=== PATIENT | male | born 1970 | race Caucasian/White ===

== ENCOUNTER 2018-11-04 06:56 | Observation (INO) | payer OTHER ==
--- NOTE | 2018-11-04 07:41 | ED ---
General Adult HPI - General Chief complaint: Chest Pain Stated complaint: Chest Pain Time Seen by Provider: 11/04/18 07:05 Source: patient, RN notes reviewed, old records reviewed Mode of arrival: EMS Limitations: no limitations - History of Present Illness Initial comments: 48-year-old male presenting for evaluation of chest pain. Patient's symptoms began at 4:30 this morning, he presents for evaluation at 7 AM. Patient has no known history of CAD, no history of DVT or PE. Patient has previous tobacco use but has not smoked in the past 18 years. He has been diagnosed with diabetes and hypertension although he is not currently on treatment because he does not have a primary care physician. Chest pain was central chest, radiating to the left arm. Pain is improved at the time of my evaluation. He is given fentanyl and nitroglycerin by EMS. Patient does report some diaphoresis. No nausea vomiting. - Related Data Home Medications Medication Instructions Recorded Confirmed Aspirin [Adult Low Dose Aspirin EC] 81 mg PO DIRECTED 11/30/16 11/04/18 Atorvastatin [Lipitor] 80 mg PO DIRECTED 11/30/16 11/04/18 Garlic 1 tab PO DAILY 11/30/16 11/04/18 Niacin [Niacin ER] 750 mg PO DAILY 11/30/16 11/04/18 [place]-3 Fatty Acids/Fish Oil [Fish 1 tab PO DAILY 11/30/16 11/04/18 Oil 1,000 mg Softgel] metFORMIN HCL [Glucophage] 500 mg PO DIRECTED 11/30/16 11/04/18 Fenofibrate,Micronized 134 mg PO DIRECTED 11/04/18 11/04/18 [Fenofibrate] Allergies Allergy/AdvReac Type Severity Reaction Status Date / Time Penicillins Allergy Swelling Verified 11/04/18 07:50 Review of Systems ROS Statement: Those systems with pertinent positive or pertinent negative responses have been documented in the HPI. ROS Other: All systems not noted in ROS Statement are negative. Past Medical History Past Medical History: Diabetes Mellitus, Hyperlipidemia, Hypertension, Liver Disease, Sleep Apnea/CPAP/BIPAP Additional Past Medical History / Comment(s): Vitamin D deficiency, "fatty liver " History of Any Multi-Drug Resistant Organisms: None Reported Past Surgical History: No Surgical Hx Reported Past Anesthesia/Blood Transfusion Reactions: No Reported Reaction Past Psychological History: No Psychological Hx Reported Smoking Status: Former smoker Past Alcohol Use History: None Reported Past Drug Use History: None Reported General Exam Limitations: no limitations General appearance: alert, in no apparent distress Head exam: Present: atraumatic, normocephalic Eye exam: Present: normal appearance, PERRL ENT exam: Present: normal exam Neck exam: Present: normal inspection. Absent: tenderness, meningismus Respiratory exam: Present: normal lung sounds bilaterally. Absent: respiratory distress, wheezes Cardiovascular Exam: Present: regular rate, normal rhythm GI/Abdominal exam: Present: soft. Absent: distended, tenderness, guarding Extremities exam: Present: normal inspection, normal capillary refill, other ( Distal pulses 2+, symmetric). Absent: pedal edema Neurological exam: Present: alert, oriented X3, CN II-XII intact. Absent: motor sensory deficit Psychiatric exam: Present: normal affect, normal mood Skin exam: Present: warm, dry, intact. Absent: cyanosis, diaphoretic Course Vital Signs 11/04/18 11/04/18 11/04/18 06:58 07:04 09:27 Temperature 98.5 F Pulse Rate 104 H 90 Respiratory 18 19 Rate Blood Pressure 121/78 111/78 O2 Sat by Pulse 97 95 Oximetry EKG Findings - EKG Comments: EKG Findings:: EKG: Sinus tachycardia, rate of 103, Q waves and T-wave inversion in lead 3 and aVF, rate of 103, CO interval 152, QRS duration 88, QTC 463, no ST segment elevation or depression Medical Decision Making - Medical Decision Making 48-year-old male presenting for evaluation of chest pain. EKG shows some Q waves and T-wave inversion in inferior leads. No ST segment elevation. Chest x -ray negative for acute cardiopulmonary disease. Patient is asymptomatic on emergency department. Symptoms have both typical and atypical features. Vital signs remained stable, he is resting comfortably. He has a normal CBC, normal CMP, initial troponin is negative. Patient has not had primary care follow-up and has not been compliant with his medications for the past one year. They will place patient in observation for telemetry, serial cardiac enzymes, cardiology consultation. Case discussed with , will admit. - Lab Data Result diagrams: 11/04/18 07:20 11/04/18 07:20 Lab Results 11/04/18 11/04/18 11/04/18 Range/Units 07:20 07:20 07:20 WBC 7.9 (3.8-10.6) k/uL RBC 5.81 (4.30-5.90) m/uL Hgb 16.5 (13.0-17.5) gm/dL Hct 48.9 (39.0-53.0) % MCV 84.1 (80.0-100.0) fL MCH 28.4 (25.0-35.0) pg MCHC 33.8 (31.0-37.0) g/dL RDW 14.0 (11.5-15.5) % Plt Count 177 (150-450) k/uL Neutrophils % 63 % Lymphocytes % 27 % Monocytes % 6 % Eosinophils % 2 % Basophils % 1 % Neutrophils # 5.0 (1.3-7.7) k/uL Lymphocytes # 2.2 (1.0-4.8) k/uL Monocytes # 0.5 (0-1.0) k/uL Eosinophils # 0.1 (0-0.7) k/uL Basophils # 0.0 (0-0.2) k/uL PT (9.0-12.0) sec INR (<1.2) APTT (22.0-30.0) sec Sodium 137 (137-145) mmol/L Potassium 4.6 (3.5-5.1) mmol/L Chloride 103 (98-107) mmol/L Carbon Dioxide 24 (22-30) mmol/L Anion Gap 10 mmol/L BUN 14 (9-20) mg/dL Creatinine 0.61 L (0.66-1.25) mg/dL Est GFR (CKD-EPI)AfAm >90 (>60 ml/min/1.73 sqM) Est GFR (CKD-EPI)NonAf >90 (>60 ml/min/1.73 sqM) Glucose 371 H (74-99) mg/dL Calcium 8.9 (8.4-10.2) mg/dL Magnesium 1.6 (1.6-2.3) mg/dL Total Bilirubin 1.2 (0.2-1.3) mg/dL AST 41 (17-59) U/L ALT 66 (21-72) U/L Alkaline Phosphatase 140 H (38-126) U/L Total Creatine Kinase 54 L (55-170) U/L CK-MB (CK-2) <0.2 (0.0-2.4) ng/mL CK-MB (CK-2) Rel Index Troponin I <0.012 (0.000-0.034) ng/mL Total Protein 7.1 (6.3-8.2) g/dL Albumin 4.2 (3.5-5.0) g/dL 11/04/18 Range/Units 07:20 WBC (3.8-10.6) k/uL RBC (4.30-5.90) m/uL Hgb (13.0-17.5) gm/dL Hct (39.0-53.0) % MCV (80.0-100.0) fL MCH (25.0-35.0) pg MCHC (31.0-37.0) g/dL RDW (11.5-15.5) % Plt Count (150-450) k/uL Neutrophils % % Lymphocytes % % Monocytes % % Eosinophils % % Basophils % % Neutrophils # (1.3-7.7) k/uL Lymphocytes # (1.0-4.8) k/uL Monocytes # (0-1.0) k/uL Eosinophils # (0-0.7) k/uL Basophils # (0-0.2) k/uL PT 10.0 (9.0-12.0) sec INR 0.9 (<1.2) APTT 21.3 L (22.0-30.0) sec Sodium (137-145) mmol/L Potassium (3.5-5.1) mmol/L Chloride (98-107) mmol/L Carbon Dioxide (22-30) mmol/L Anion Gap mmol/L BUN (9-20) mg/dL Creatinine (0.66-1.25) mg/dL Est GFR (CKD-EPI)AfAm (>60 ml/min/1.73 sqM) Est GFR (CKD-EPI)NonAf (>60 ml/min/1.73 sqM) Glucose (74-99) mg/dL Calcium (8.4-10.2) mg/dL Magnesium (1.6-2.3) mg/dL Total Bilirubin (0.2-1.3) mg/dL AST (17-59) U/L ALT (21-72) U/L Alkaline Phosphatase (38-126) U/L Total Creatine Kinase (55-170) U/L CK-MB (CK-2) (0.0-2.4) ng/mL CK-MB (CK-2) Rel Index Troponin I (0.000-0.034) ng/mL Total Protein (6.3-8.2) g/dL Albumin (3.5-5.0) g/dL Disposition Clinical Impression: Chest pain Disposition: ADMITTED IP TO THIS [facility] Condition: Stable Is patient prescribed a controlled substance at d/c from ED?: No Referrals: Ming Gaitan DO [Primary Care Provider] - 1-2 days Decision to Admit Reason: Admit from EC Decision Date: 11/04/18 Decision Time: 09:37
--- NOTE | 2018-11-04 07:55 | XR ---
EXAMINATION TYPE: XR chest 2V DATE OF EXAM: 11/04/2018 COMPARISON: NONE HISTORY: Chest pain TECHNIQUE: Frontal and lateral views of the chest are obtained. FINDINGS: Patient is rotated. There are cardiac leads. There is no focal air space opacity, pleural e ffusion, or pneumothorax seen. The cardiac silhouette size is within normal limits. The osseous st ructures are intact. IMPRESSION: No acute cardiopulmonary process. Follow-up as indicated. Rotated exam.
[2018-11-04 07:56] LABS: Basophils % (A) 1 %; Eosinophils # (A) 0.1 k/uL (0-0.7); Eosinophils % (A) 2 %; HCT 48.9 % (39.0-53.0); HGB 16.5 gm/dL (13.0-17.5); Lymphocytes # (A) 2.2 k/uL (1.0-4.8); Lymphocytes % (A) 27 %; MCH 28.4 pg (25.0-35.0); MCHC 33.8 g/dL (31.0-37.0); MCV 84.1 fL (80.0-100.0); Mean Platelet Volume 8.8; Monocytes # (A) 0.5 k/uL (0-1.0); Monocytes % (A) 6 %; Neutrophils % (A) 63 %; Platelet Count 177 k/uL (150-450); RBC 5.81 m/uL (4.30-5.90); WBC 7.9 k/uL (3.8-10.6)
[2018-11-04 08:04] LABS: ALT 66 U/L (21-72); AST 41 U/L (17-59); Albumin 4.2 g/dL (3.5-5.0); Alkaline Phosphatase 140 U/L (38-126); Anion Gap 10 mmol/L; Blood Urea Nitrogen 14 mg/dL (9-20); Calcium 8.9 mg/dL (8.4-10.2); Carbon Dioxide 24 mmol/L (22-30); Chloride 103 mmol/L (98-107); Glucose 371 mg/dL (74-99); Magnesium 1.6 mg/dL (1.6-2.3); Sodium 137 mmol/L (137-145); Total Bilirubin 1.2 mg/dL (0.2-1.3); Total Protein 7.1 g/dL (6.3-8.2)
[2018-11-04 08:05] LABS: Potassium 4.6 mmol/L (3.5-5.1)
[2018-11-04 08:11] LABS: INR 0.9 (<1.2)
[2018-11-04 08:24] LABS: Partial Thromboplastin Time 21.3 sec (22.0-30.0)
[2018-11-04 08:29] LABS: Creatine Kinase 54 U/L (55-170)
[2018-11-04 08:42] LABS: Creatine Kinase MB <0.2 ng/mL (0.0-2.4); Troponin I <0.012 ng/mL (0.000-0.034)
[2018-11-04] MEDS ORDERED: ASPIRIN 325 MG TAB PO STA (09:30)
[2018-11-04] MEDS ORDERED: NALOXONE 0.4 MG/ML 1 ML VIAL IV PRN (09:33)
[2018-11-04] MEDS ORDERED: ACETAMINOPHEN TAB 325 MG TAB PO PRN (09:33)
[2018-11-04] MEDS ORDERED: MORPHINE SULFATE 4 MG/ML SYRINGE IV PRN (09:33)
[2018-11-04] MEDS ORDERED: ONDANSETRON 4 MG/2 ML VIAL IVP PRN (09:33)
[2018-11-04] MEDS ORDERED: ATORVASTATIN 80 MG TAB PO SCH (09:45)
[2018-11-04] MEDS ORDERED: NON-FORMULARY DRUG (Aspirin [Adult Low Dose Aspirin Ec] 81 MG) PO SCH (09:45)
[2018-11-04 11:44] LABS: Glucose,Whole Blood 276 mg/dL (75-99)
[2018-11-04] MEDS ORDERED: FENOFIBRATE MICRONIZED 134 MG PO SCH (12:00)
[2018-11-04] MEDS ORDERED: ALPRAZolam 0.25 MG TAB PO PRN (12:27)
[2018-11-04] MEDS ORDERED: ALPRAZolam 0.5 MG TAB PO PRN (12:27)
[2018-11-04] MEDS ORDERED: SODIUM CHLORIDE 0.9% 1,000 ML in EMPTY BAG 1 BAG IV ONE (12:27)
[2018-11-04] MEDS ORDERED: NITROGLYCERIN SL TABS 0.4 MG TAB SUBLINGUAL PRN (12:27)
[2018-11-04] MEDS ORDERED: HEPARIN SODIUM,PORCINE 5,000 UNIT/ML 1 ML VIAL IV PRN (12:28)
[2018-11-04] MEDS ORDERED: HEPARIN SODIUM,PORCINE 5,000 UNIT/ML 1 ML VIAL IV ONE (12:28)
[2018-11-04] MEDS ORDERED: HEPARIN SOD,PORK IN 0.45% NACL 25,000 UNIT in 0.45% NACL 1 250ML.BAG IV SCH (12:30)
--- NOTE | 2018-11-04 13:09 | P.CRDCN ---
History of Present Illness History of present illness: This is a pleasant 48-year-old male past medical history significant for diabetes mellitus, hypertension in the past although not on medication currently, dyslipidemia, former nicotine dependence and morbid obesity. He denies history of coronary artery disease. He states his father suffered his first myocardial infarction in his mid to late 40s. We have been asked to see him in consultation for symptoms chest discomfort. He states he woke up this morning with a squeezing pressure sensation in the midsternal region with radiation to the left shoulder and left neck. He denies radiation down the left arm, into the back or jaw. He denies associated shortness of breath, dizziness, palpitations, nausea, vomiting or diaphoresis. The pain has been constant since he woke up this morning and is mildly reproducible on palpation in the midsternal region. EKG reveals sinus mechanism with T-wave inversions inferiorly and inferior Q waves noted. Chest x-ray is negative for an acute cardiopulmonary process. Laboratory data reviewed, WBC 7.9, hemoglobin 16.5, platelets 177, sodium 137, potassium 4.6, creatinine 0.61, magnesium 1.6, alkaline phosphatase 140, cardiac enzymes negative 1. Current cardiac medications include atorvastatin 80 mg daily, fenofibrate 134 mg daily, niacin 750 mg daily and aspirin 81 mg daily. At the time of my exam: CONSTITUTIONAL: Denies fever. Denies chills. EYES: Denies blurred vision. Denies vision changes. Denies eye pain. EARS, NOSE, MOUTH & THROAT: Denies headache. Denies sore throat. Denies ear pain. CARDIOVASCULAR: Complains of chest pain. Denies shortness of breath. Denies orthopnea. Denies PND. Denies palpitations. RESPIRATORY: Denies cough. GASTROINTESTINAL: Denies abdominal pain. Denies diarrhea. Denies constipation. Denies nausea. Denies vomiting. MUSCULOSKELETAL: Denies myalgias. INTEGUMENTARY: Denies pruitis. Denies rash. NEUROLOGIC: Denies numbness. Denies tingling. Denies weakness. PSYCHIATRIC: Denies anxiety. Denies depression. ENDOCRINE: Denies fatigue. Denies weight change. Denies polydipsia. Denies polyurina. GENITOURINARY: Denies burning, hematuria or urgency with micturation. HEMATOLOGIC: Denies history of anemia. Denies bleeding. Blood pressure 150/98 heart rate 94 afebrile maintaining oxygen saturation on nasal cannula GENERAL: This is a 48-year-old occasion male in no apparent distress at the time of my examination. Obese. HEENT: Head is atraumatic, normocephalic. Pupils are equal, round. Sclerae anicteric. Conjunctivae are clear. Mucous membranes of the mouth are moist. Neck is supple. There is no jugular venous distention. No carotid bruit is heard. LUNGS: Clear to auscultation no wheezes, rales or rhonchi. Mild chest wall tenderness is noted on palpation. No chest discomfort with deep breathing. HEART: Regular rate and rhythm without murmurs, rubs or gallops. S1 and S2 heard. ABDOMEN: Soft, nontender. Bowel sounds are heard. No organomegaly noted. EXTREMITIES: No evidence of peripheral edema and no calf tenderness noted. VASCULAR: Radial and dorsalis pedis pulses palpated, no evidence of clubbing. NEUROLOGIC: Patient is awake, alert and oriented x3. ASSESSMENT Unstable angina Dyslipidemia Diabetes mellitus Hypertension Significant family history of premature coronary artery disease Morbid obesity, BMI 44 Former nicotine dependence PLAN Continue to obtain serial cardiac enzymes to rule out an acute coronary event. Obtain 2-D echocardiogram and Doppler study to assess cardiac structure and function. Recommend proceeding with cardiac catheterization to further assess for coronary artery disease given the patient's symptoms of unstable angina and significant risk factors. I have discussed the risks, benefits and alternative therapies for the above-mentioned procedure and for both sedation/analgesia as well as necessary blood product administration, if indicated, as they pertain to this patient. The patient has indicated understanding and acceptance of the risks and procedures discussed. Questions have been answered appropriately and he is agreeable to move forward with the above stated procedure. Nothing by mouth after midnight. He will be initiated on a heparin infusion, Nitropaste and beta blockers. Continue aspirin and atorvastatin as previously ordered. Check lipid panel in the morning. Further recommendations to follow based upon clinical course. Thank you kindly for this consultation. Nurse Practitioner note has been reviewed, I agree with a documented findings and plan of care. Patient was seen and examined. Past Medical History Past Medical History: Diabetes Mellitus, Hyperlipidemia, Hypertension, Liver Disease, Sleep Apnea/CPAP/BIPAP Additional Past Medical History / Comment(s): NIDDM type II, neuropathy bilateral hands/legs and feet, [place] with CPap, vitamin D defiency, "fatty liver" History of Any Multi-Drug Resistant Organisms: None Reported Past Surgical History: No Surgical Hx Reported Past Anesthesia/Blood Transfusion Reactions: No Reported Reaction Smoking Status: Former smoker - Past Family History Mother Family Medical History: Diabetes Mellitus, Renal Disease Additional Family Medical History / Comment(s): Irregular heart beat, stage II renal failure, diabetic neuropathy. Father Family Medical History: Coronary Artery Disease (CAD), Myocardial [place]arction [place] ) Additional Family Medical History / Comment(s): Father had a [place] in his early 40s. He while on the heart transplant list at the age of 52 yrs Medications and Allergies Home Medications Medication Instructions Recorded Confirmed Type Aspirin [Adult Low Dose Aspirin EC] 81 mg PO DIRECTED 11/30/16 11/04/18 History Atorvastatin [Lipitor] 80 mg PO DIRECTED 11/30/16 11/04/18 History Garlic 1 tab PO DAILY 11/30/16 11/04/18 History Niacin [Niacin ER] 750 mg PO DAILY 11/30/16 11/04/18 History [place]-3 Fatty Acids/Fish Oil [Fish 1 tab PO DAILY 11/30/16 11/04/18 History Oil 1,000 mg Softgel] metFORMIN HCL [Glucophage] 500 mg PO DIRECTED 11/30/16 11/04/18 History Fenofibrate,Micronized 134 mg PO DIRECTED 11/04/18 11/04/18 History [Fenofibrate] Allergies Allergy/AdvReac Type Severity Reaction Status Date / Time Penicillins Allergy Swelling Verified 11/04/18 07:50 Physical Exam Vitals: Vital Signs Temp Pulse Pulse Resp BP BP Pulse Ox 11/04/18 11:15 98.1 F 94 18 150/98 96 11/04/18 09:27 90 19 111/78 95 11/04/18 07:04 104 H 18 121/78 97 11/04/18 06:58 98.5 F Intake and Output 11/03/18 11/04/18 11/04/18 22:59 06:59 14:59 Other: Weight 124.738 kg Results 11/04/18 07:20 11/04/18 07:20 Cardiac Enzymes 11/04/18 11/04/18 Range/Units 07:20 07:20 AST 41 (17-59) U/L CK-MB (CK-2) <0.2 (0.0-2.4) ng/mL Troponin I <0.012 (0.000-0.034) ng/mL Coagulation 11/04/18 Range/Units 07:20 PT 10.0 (9.0-12.0) sec APTT 21.3 L (22.0-30.0) sec CBC 11/04/18 Range/Units 07:20 WBC 7.9 (3.8-10.6) k/uL RBC 5.81 (4.30-5.90) m/uL Hgb 16.5 (13.0-17.5) gm/dL Hct 48.9 (39.0-53.0) % Plt Count 177 (150-450) k/uL Comprehensive Metabolic Panel 11/04/18 Range/Units 07:20 Sodium 137 (137-145) mmol/L Potassium 4.6 (3.5-5.1) mmol/L Chloride 103 (98-107) mmol/L Carbon Dioxide 24 (22-30) mmol/L BUN 14 (9-20) mg/dL Creatinine 0.61 L (0.66-1.25) mg/dL Glucose 371 H (74-99) mg/dL Calcium 8.9 (8.4-10.2) mg/dL AST 41 (17-59) U/L ALT 66 (21-72) U/L Alkaline Phosphatase 140 H (38-126) U/L Total Protein 7.1 (6.3-8.2) g/dL Albumin 4.2 (3.5-5.0) g/dL Current Medications Generic Name Dose Route Start Last Admin Trade Name Freq PRN Reason Stop Dose Admin Acetaminophen 650 mg 11/04/18 09:33 Tylenol Tab PO Q6HR PRN Mild Pain or Fever > 100.5 Alprazolam 0.25 mg 11/04/18 12:27 Xanax PO Q6HR PRN Mild Anxiety Alprazolam 0.5 mg 11/04/18 12:27 Xanax PO Q6HR PRN Moderate Anxiety Aspirin 325 mg 11/05/18 09:00 Aspirin PO 11/05/18 09:01 ONCE ONE Atorvastatin Calcium 80 mg 11/04/18 09:45 Lipitor PO DIRECTED THUY Heparin Sodium (Porcine) 0 unit 11/04/18 12:28 Heparin IV PER PROTOCOL PRN Low PTT Protocol Heparin Sodium/Sodium Chloride 250 mls @ 9.99 mls/hr 11/04/18 12:30 25,000 unit/ Sodium Chloride IV .Q24H [facility] Protocol 8.01 UNITS/KG/HR Sodium Chloride 1,000 ml/ IV 1,000 mls @ 124.73 mls/hr 11/04/18 12:27 Solution IV 11/04/18 20:28 .Q8H2M ONE 1 ML/KG/HR Insulin Aspart 0 unit 11/04/18 12:30 Novolog SQ ACHS [facility] Protocol Metoprolol Tartrate 25 mg 11/04/18 12:30 Lopressor PO BID [facility] Morphine Sulfate 4 mg 11/04/18 09:33 Morphine Sulfate (Inj) IV Q4HR PRN Severe Pain Naloxone HCl 0.2 mg 11/04/18 09:33 Narcan IV Q2M PRN Opioid Reversal Nitroglycerin 0.5 inch 11/04/18 12:30 Nitro-Bid Oint TOPICAL Q6HR [facility] Nitroglycerin 0.4 mg 11/04/18 12:27 Nitrostat SUBLINGUAL Q5M PRN Chest Pain Non-Formulary Medication 134 mg 11/04/18 12:00 Fenofibrate,Micronized [Fenofibrate] PO DIRECTED [facility] Ondansetron HCl 4 mg 11/04/18 09:33 Zofran IVP Q8HR PRN Nausea And Vomiting Intake and Output 11/03/18 11/04/18 11/04/18 22:59 06:59 14:59 Other: Weight 124.738 kg 11/04/18 07:20 11/04/18 07:20
[2018-11-04 13:34] LABS: Basophils % (A) 1 %; Eosinophils # (A) 0.1 k/uL (0-0.7); Eosinophils % (A) 1 %; HCT 49.3 % (39.0-53.0); HGB 16.8 gm/dL (13.0-17.5); Lymphocytes # (A) 2.5 k/uL (1.0-4.8); Lymphocytes % (A) 30 %; MCH 28.8 pg (25.0-35.0); MCHC 34.2 g/dL (31.0-37.0); MCV 84.2 fL (80.0-100.0); Mean Platelet Volume 8.6; Monocytes # (A) 0.4 k/uL (0-1.0); Monocytes % (A) 5 %; Neutrophils # (A) 5.1 k/uL (1.3-7.7); Neutrophils % (A) 62 %; Platelet Count 172 k/uL (150-450); RBC 5.85 m/uL (4.30-5.90); RDW 14.1 % (11.5-15.5); WBC 8.2 k/uL (3.8-10.6)
[2018-11-04] MEDS: METOPROLOL TARTRATE 25 MG TAB PO SCH ×2 (13:40→20:51)
[2018-11-04 13:41] LABS: INR 0.9 (<1.2)
[2018-11-04] MEDS: NITROGLYCERIN OINT 1 INCH/GM PACKET TOPICAL SCH ×2 (13:43→17:48)
[2018-11-04] MEDS: INSULIN ASPART (NovoLOG) 100 UNIT/ML VIAL SQ SCH ×3 (13:45→20:50)
[2018-11-04 13:50] LABS: Creatine Kinase 36 U/L (55-170)
[2018-11-04 13:59] LABS: Partial Thromboplastin Time 21.6 sec (22.0-30.0)
[2018-11-04 14:04] LABS: Creatine Kinase MB <0.2 ng/mL (0.0-2.4); Troponin I <0.012 ng/mL (0.000-0.034)
--- NOTE | 2018-11-04 14:12 | P.HPIM ---
History of Present Illness 48-year-old with history of diabetes with us, per which were not disease history as well as dyslipidemia and obesity given her complaints of nonexertional chest pain in the midsternal and left precordial area radiating to the neck with some numbness in the left thumb started today morning lasted for a few hours moderate severity associated with the some lightheadedness pressure-like sensation and possible shortness of breath denied any nausea vomiting denied any diaphoresis patient denied any cough patient's symptoms started after he woke up and relieved by nitroglycerin lasted for a few hours. Because of the typical nature of the chest pain and some T-wave inversions inferiorly on the EKG patient will undergo cardiac catheterization today and tomorrow. Review of Systems REVIEW OF SYSTEMS: CONSTITUTIONAL: No fever, no malaise, no fatigue. HEENT: No recent visual problems or hearing problems. Denied any sore throat. CARDIOVASCULAR: No orthopnea, PND, no palpitations, no syncope. PULMONARY: No shortness of breath, no cough, no hemoptysis. GASTROINTESTINAL: No diarrhea, no nausea, no vomiting, no abdominal pain. NEUROLOGICAL: No headaches, no weakness, no numbness. HEMATOLOGICAL: Denies any bleeding or petechiae. GENITOURINARY: Denies any burning micturition, frequency, or urgency. MUSCULOSKELETAL/RHEUMATOLOGICAL: Denies any joint pain, swelling, or any muscle pain. ENDOCRINE: Denies any polyuria or polydipsia. The rest of the 14-point review of systems is negative. Past Medical History Past Medical History: Diabetes Mellitus, Hyperlipidemia, Hypertension, Liver Disease, Sleep Apnea/CPAP/BIPAP Additional Past Medical History / Comment(s): NIDDM type II, neuropathy bilateral hands/legs and feet, [place] with CPap, vitamin D defiency, "fatty liver" History of Any Multi-Drug Resistant Organisms: None Reported Past Surgical History: No Surgical Hx Reported Past Anesthesia/Blood Transfusion Reactions: No Reported Reaction Smoking Status: Former smoker - Past Family History Mother Family Medical History: Diabetes Mellitus, Renal Disease Additional Family Medical History / Comment(s): Irregular heart beat, stage II renal failure, diabetic neuropathy. Father Family Medical History: Coronary Artery Disease (CAD), Myocardial Infarction ([place] ) Additional Family Medical History / Comment(s): Father had a [place] in his early 40s. He while on the heart transplant list at the age of 52 yrs Medications and Allergies Home Medications Medication Instructions Recorded Confirmed Type Aspirin [Adult Low Dose Aspirin EC] 81 mg PO DIRECTED 11/30/16 11/04/18 History Atorvastatin [Lipitor] 80 mg PO DIRECTED 11/30/16 11/04/18 History Garlic 1 tab PO DAILY 11/30/16 11/04/18 History Niacin [Niacin ER] 750 mg PO DAILY 11/30/16 11/04/18 History [place]-3 Fatty Acids/Fish Oil [Fish 1 tab PO DAILY 11/30/16 11/04/18 History Oil 1,000 mg Softgel] metFORMIN HCL [Glucophage] 500 mg PO DIRECTED 11/30/16 11/04/18 History Fenofibrate,Micronized 134 mg PO DIRECTED 11/04/18 11/04/18 History [Fenofibrate] Allergies Allergy/AdvReac Type Severity Reaction Status Date / Time Penicillins Allergy Swelling Verified 11/04/18 07:50 Physical Exam Vitals: Vital Signs Temp Pulse Pulse Resp BP BP Pulse Ox 11/04/18 11:15 98.1 F 94 18 150/98 96 11/04/18 09:27 90 19 111/78 95 11/04/18 07:04 104 H 18 121/78 97 11/04/18 06:58 98.5 F Intake and Output 11/03/18 11/04/18 11/04/18 22:59 06:59 14:59 Intake Total 236 Balance 236 Intake: Oral 236 Other: Weight 124.738 kg PHYSICAL EXAMINATION: GENERAL: The patient is alert and oriented x3, not in any acute distress. Well developed, well nourished. HEENT: Pupils are round and equally reacting to light. EOMI. No scleral icterus. No conjunctival pallor. Normocephalic, atraumatic. No pharyngeal erythema. No thyromegaly. CARDIOVASCULAR: S1 and S2 present. No murmurs, rubs, or gallops. PULMONARY: Chest is clear to auscultation, no wheezing or crackles. ABDOMEN: Soft, nontender, nondistended, normoactive bowel sounds. No palpable organomegaly. MUSCULOSKELETAL: No joint swelling or deformity. EXTREMITIES: No cyanosis, clubbing, or pedal edema. NEUROLOGICAL: Gross neurological examination did not reveal any focal deficits. SKIN: No rashes. Results CBC & Chem 7: 02/11/19 13:04 11/04/18 07:20 Labs: Abnormal Lab Results - Last 24 Hours (Table) 11/04/18 11/04/18 11/04/18 Range/Units 07:20 07:20 07:20 APTT 21.3 L (22.0-30.0) sec Creatinine 0.61 L (0.66-1.25) mg/dL Glucose 371 H (74-99) mg/dL POC Glucose (mg/dL) (75-99) mg/dL Alkaline Phosphatase 140 H (38-126) U/L Total Creatine Kinase 54 L (55-170) U/L 11/04/18 11/04/18 11/04/18 Range/Units 11:32 13:04 13:04 APTT 21.6 L (22.0-30.0) sec Creatinine (0.66-1.25) mg/dL Glucose (74-99) mg/dL POC Glucose (mg/dL) 276 H (75-99) mg/dL Alkaline Phosphatase (38-126) U/L Total Creatine Kinase 36 L (55-170) U/L Thrombosis Risk Factor Assmnt - Choose All That Apply Any of the Below Risk Factors Present?: Yes Each Factor Represents 1 point: Age 41-60 years, Obesity (BMI >25) Other Risk Factors: No Other congenital or acquired thrombophilia - If yes, enter type in comment: No Thrombosis Risk Factor Assessment Total Risk Factor Score: 2 Thrombosis Risk Factor Assessment Level: Low Risk Assessment and Plan Plan: Chest pain: typical nature possibility of unstable angina patient undergo cardiac catheterization tomorrow. Troponins are negative. -Type 2 diabetes mellitus elevated blood sugars hemoglobin A1c be obtained patient when sliding scale insulin and metformin will be held -Obesity: Counseling was provided -Hyperlipidemia
[2018-11-04 16:57] LABS: Glucose,Whole Blood 253 mg/dL (75-99)
[2018-11-04 19:36] LABS: Creatine Kinase 43 U/L (55-170)
[2018-11-04 19:47] LABS: Creatine Kinase MB <0.2 ng/mL (0.0-2.4); Troponin I <0.012 ng/mL (0.000-0.034)
[2018-11-04 20:07] LABS: Glucose,Whole Blood 285 mg/dL (75-99)
[2018-11-05] MEDS: NITROGLYCERIN OINT 1 INCH/GM PACKET TOPICAL SCH ×2 (00:56→06:18)
[2018-11-05 03:13] LABS: Basophils # (A) 0.1 k/uL (0-0.2); Basophils % (A) 1 %; Eosinophils # (A) 0.2 k/uL (0-0.7); Eosinophils % (A) 2 %; HCT 49.7 % (39.0-53.0); HGB 16.4 gm/dL (13.0-17.5); Lymphocytes # (A) 4.1 k/uL (1.0-4.8); Lymphocytes % (A) 44 %; MCH 28.1 pg (25.0-35.0); MCHC 33.1 g/dL (31.0-37.0); Mean Platelet Volume 7.7; Monocytes # (A) 0.5 k/uL (0-1.0); Monocytes % (A) 5 %; Neutrophils # (A) 4.1 k/uL (1.3-7.7); Neutrophils % (A) 45 %; Platelet Count 185 k/uL (150-450); RBC 5.84 m/uL (4.30-5.90); RDW 14.3 % (11.5-15.5); WBC 9.2 k/uL (3.8-10.6)
[2018-11-05 03:45] LABS: Hemoglobin A1C 12.1 % (4.0-6.0)
[2018-11-05] MEDS: METOPROLOL TARTRATE 25 MG TAB PO SCH (05:47)
[2018-11-05 06:42] LABS: Glucose,Whole Blood 258 mg/dL (75-99)
[2018-11-05 07:43] VITALS: RESP 18
[2018-11-05] MEDS: INSULIN ASPART (NovoLOG) 100 UNIT/ML VIAL SQ SCH ×3 (08:05→17:01)
[2018-11-05] MEDS ORDERED: ASPIRIN 325 MG TAB PO ONE (09:00)
[2018-11-05] MEDS ORDERED: SODIUM CHLORIDE 0.9% 1,000 ML IV ONE (10:31)
--- NOTE | 2018-11-05 10:44 | ECHOF ---
Referral Reason: MEASUREMENTS -------- HEIGHT: 167.6 cm WEIGHT: 124.7 kg BP: IVSd: 1.2 cm (0.6 - 1.1) LVIDd: 3.6 cm (3.9 - 5.3) LVPWd: 1.4 cm (0.6 - 1.1) IVSs: 1.3 cm LVIDs: 2.4 cm LVPWs: 1.7 cm LAESV Index (A-L): 12.69 ml/m Ao Diam: 3.4 cm (2.0 - 3.7) AV Cusp: 2.0 cm (1.5 - 2.6) LA Diam: 2.2 cm (2.7 - 3.8) MV EXCURSION: 9.603 mm (> 18.000) MV EF SLOPE: 61 mm/s (70 - 150) EPSS: 1.2 cm MV E Shar: 0.70 m/s MV DecT: 257 ms MV A Shar: 1.02 m/s MV E/A Ratio: 0.69 AV maxP.74 mmHg AV meanP.15 mmHg AR PHT: 341 ms RAP: 5.00 mmHg RVSP: 21.36 mmHg FINDINGS -------- Sinus rhythm. This was a technically good study. The left ventricular size is normal. There is mild concentric left ventricular hypertrophy. Overa ll left ventricular systolic function is normal with, an EF between 55 - 60 %. The right ventricle is normal in size and function. The left atrium is normal in size. The right atrium is normal in size. The aortic valve is bicuspid. There is mild aortic regurgitation. Peak/mean gradient across the A ortic Valve is 16.74mmHg / 10.15mmHg. The mitral valve leaflets are mildly thickened. There is trace mitral regurgitation. Trace tricuspid regurgitation present. The right ventricular systolic pressure, as measured by Dopp ler, is 21.36mmHg. Pulmonic valve appears structurally normal. The aortic root size is normal. IVC Not well visulized. The pericardium is normal. CONCLUSIONS -------- 1. Sinus rhythm. 2. This was a technically good study. 3. The left ventricular size is normal. 4. There is mild concentric left ventricular hypertrophy. 5. Overall left ventricular systolic function is normal with, an EF between 55 - 60 %. 6. The right ventricle is normal in size and function. 7. The left atrium is normal in size. 8. The right atrium is normal in size. 9. The aortic valve is bicuspid. 10. There is mild aortic regurgitation. 11. Peak/mean gradient across the Aortic Valve is 16.74mmHg / 10.15mmHg. 12. The mitral valve leaflets are mildly thickened. 13. There is trace mitral regurgitation. 14. Trace tricuspid regurgitation present. 15. The right ventricular systolic pressure, as measured by Doppler, is 21.36mmHg. 16. Pulmonic valve appears structurally normal. 17. The aortic root size is normal. 18. IVC Not well visulized. 19. The pericardium is normal. CAGE SHIFT MANAGER: Tabatha Ayoub RDCS
[2018-11-05] MEDS ORDERED: MIDAZOLAM 2 MG/2 ML VIAL IV ONE ×2 (10:45→10:46)
[2018-11-05] MEDS ORDERED: fentaNYL (PF) 50 MCG/ML 2 ML AMP IV ONE (10:46)
[2018-11-05] MEDS ORDERED: LIDOCAINE 1% INJ 10MG/ML (20 ML MDV) SQ ONE (10:49)
[2018-11-05] MEDS ORDERED: IOPAMIDOL-370 50ML BTL INJ ONE (11:03)
[2018-11-05] MEDS ORDERED: IOPAMIDOL-370 100ML BTL INJ ONE (11:03)
[2018-11-05] MEDS ORDERED: SODIUM CHLORIDE 0.9% 1,000 ML IV SCH (11:15)
[2018-11-05] MEDS ORDERED: RX INFO: IV CONTRAST WAS GIVEN 1 EACH MISC MISCELLANE PRN (11:15)
--- NOTE | 2018-11-05 11:33 | CC ---
CARDIAC CATHETERIZATION REPORT INDICATION: Unstable angina. PROCEDURE NOTE: After obtaining informed consent, left heart catheterization, coronary angiogram and aortogram was performed via the right femoral artery using standard Thiago catheters. Patient tolerated the procedure well without any obvious immediate complications. A femoral angiogram was performed and Angio-Seal was deployed. The patient received moderate conscious sedation and total sedation time was 18 minutes. FINDINGS: 1. HEMODYNAMICS: Left ventricular end-diastolic pressure is 18 to 20 mm. There is no significant gradient across the aortic valve. 2. LEFT VENTRICULOGRAM: Left ventriculogram is not performed. 3. ANGIOGRAPHIC DATA: Left Main Coronary Artery: Left main coronary artery is a normal-sized vessel and is free of stenosis. Divides into left anterior descending coronary artery and circumflex coronary artery. LAD and its branches, circumflex coronary artery and its branches are free of significant stenosis. Right coronary artery is a large dominant vessel and is free of significant disease. AORTOGRAM: Aortogram was performed as aorta appeared dilated and we had to use a size 5 Thiago catheter to engage the left coronary artery. Aortogram shows that the ascending aorta is aneurysmally dilated. CONCLUSIONS: 1. Normal coronary arteries. 2. Mildly elevated left ventricular end-diastolic pressure. 3. Ascending aortic aneurysm. PLAN: I am going to obtain a CT of the aorta to accurately assess the ascending aorta and if necessary, consider a CT surgery referral. MMODL / IJN: [id number] /
[2018-11-05 12:04] LABS: Glucose,Whole Blood 214 mg/dL (75-99)
[2018-11-05 14:14] VITALS: BMI 44.4
[2018-11-05 15:59] VITALS: BP 144/90; PULSE 78; TEMP 98.7
--- NOTE | 2018-11-05 16:28 | P.DS ---
Providers Date of admission: 11/04/18 09:34 Attending physician: Heydi Cantu Consults: 11/04/18 09:33 Consult Physician Routine Consulting Provider: Josemanuel Vides Consult Reason/Comments: CP Do you want consulting provider notified?: Yes Primary care physician: Lab[facility] Course: 48-year-old with history of diabetes with us, per which were not disease history as well as dyslipidemia and obesity given her complaints of nonexertional chest pain in the midsternal and left precordial area radiating to the neck with some numbness in the left thumb started today morning lasted for a few hours moderate severity associated with the some lightheadedness pressure-like sensation and possible shortness of breath denied any nausea vomiting denied any diaphoresis patient denied any cough patient's symptoms started after he woke up and relieved by nitroglycerin lasted for a few hours. Because of the typical nature of the chest pain and some T-wave inversions inferiorly on the EKG patient will undergo cardiac catheterization today and tomorrow. 11/05/2018 Patient underwent cardiac catheterization which did not show any significant atherosclerotic occlusive disease that needed stenting. Although found to have significant in the resume of the ascending aorta because of which we're obtaining a chest computed tomography scan, depending on the results patient probably can be discharged today. Patient blood sugars are uncontrolled with hemoglobin A1c of 12 due to noncompliance with his medications patient's metformin dose will be increased to thousand twice a day starting tomorrow. We' ll repeat basic metabolic profile in couple days since he received contrast 2 days in a row. Patient can hold his metformin until tomorrow evening. PHYSICAL EXAMINATION: GENERAL: The patient is alert and oriented x3, not in any acute distress. Well developed, well nourished. HEENT: Pupils are round and equally reacting to light. EOMI. No scleral icterus. No conjunctival pallor. Normocephalic, atraumatic. No pharyngeal erythema. No thyromegaly. CARDIOVASCULAR: S1 and S2 present. No murmurs, rubs, or gallops. PULMONARY: Chest is clear to auscultation, no wheezing or crackles. ABDOMEN: Soft, nontender, nondistended, normoactive bowel sounds. No palpable organomegaly. MUSCULOSKELETAL: No joint swelling or deformity. EXTREMITIES: No cyanosis, clubbing, or pedal edema. NEUROLOGICAL: Gross neurological examination did not reveal any focal deficits. SKIN: No rashes. Reason for to my dictation of H&P for further details of hospitalization course and other medical problems Patient Condition at Discharge: Stable Plan - Discharge Summary Discharge Rx Participant: No New Discharge Prescriptions: Continue Amenia-3 Fatty Acids/Fish Oil [Fish Oil 1,000 mg Softgel] 1 tab PO DAILY Niacin [Niacin ER] 750 mg PO DAILY Aspirin [Adult Low Dose Aspirin EC] 81 mg PO DIRECTED Garlic 1 tab PO DAILY Changed metFORMIN HCL [Glucophage] 1,000 mg PO DIRECTED #60 tab Discharge Medication List Aspirin [Adult Low Dose Aspirin EC] 81 mg PO DIRECTED 11/30/16 [History] Garlic 1 tab PO DAILY 11/30/16 [History] Niacin [Niacin ER] 750 mg PO DAILY 11/30/16 [History] Amenia-3 Fatty Acids/Fish Oil [Fish Oil 1,000 mg Softgel] 1 tab PO DAILY [History] metFORMIN HCL [Glucophage] 1,000 mg PO DIRECTED #60 tab 11/05/18 [Rx] Follow up Appointment(s)/Referral(s): Ming Gaitan DO [Primary Care Provider] - 1-2 days Eladio Yadav MD [STAFF PHYSICIAN] - 1 Week Ambulatory/Diagnostic Orders: Basic Metabolic Panel [LAB.AMB] Time Frame: 2 Days, Location: None Selected Discharge Disposition: HOME SELF-CARE
[2018-11-05 16:35] LABS: Glucose,Whole Blood 220 mg/dL (75-99)
[2018-11-05 16:41] LABS: Anion Gap 7 mmol/L; Blood Urea Nitrogen 11 mg/dL (9-20); Calcium 8.7 mg/dL (8.4-10.2); Carbon Dioxide 26 mmol/L (22-30); Chloride 103 mmol/L (98-107); Glucose 245 mg/dL (74-99); Potassium 4.2 mmol/L (3.5-5.1); Sodium 136 mmol/L (137-145)
--- NOTE | 2018-11-05 17:13 | CT ---
EXAMINATION TYPE: CT angio thor/abd pel aorta, without and with IV contrast and with 3-D reconstructi on renderings DATE OF EXAM: 11/05/2018 COMPARISON: 11/28/2011 faxed HISTORY: Abnormal heart cath CT DLP: 2224.9 mGycm. Automated Exposure Control for Dose Reduction was Utilized. CONTRAST: CT scan of the thorax, abdomen and pelvis is performed without and with IV Contrast, patien t injected with 100 mL of Isovue 370. 3-D reconstructions. FINDINGS: LUNGS AND PLEURAL SPACES AND AIRWAYS: The lungs are grossly clear, there is no concerning parenchymal mass or nodule identified. There is no pleural effusion or pneumothorax seen. The tracheobronchia l tree is patent. MEDIASTINUM: The ascending aortic caliber is enlarged at 5.1 cm, top normal 3.9 cm. Remainder of the thoracic aorta is not. Aortic valve plane calcifications are noted. There is no aortic dissection. Th e thoracic aorta is otherwise unremarkable. The periaortic soft tissues are negative. Origins of the great vasculature at the aortic arch are unremarkable. Pulmonary arterial tree is widely patent and unremarkable. There is mild cardiomegaly; no pericardial effusion. There is no adenopathy. OTHER (CHEST): No additional significant abnormality is seen. LIVER/GB: No significant abnormality is appreciated. PANCREAS: No significant abnormality is seen. SPLEEN: No significant abnormality is seen. ADRENALS: No significant abnormality is seen. KIDNEYS: No significant abnormality is seen. BOWEL: No significant abnormality is seen. GENITAL ORGANS: No gross abnormality seen. LYMPH NODES: No greater than 1cm abdominal or pelvic lymph nodes are appreciated. OSSEOUS STRUCTURES: No significant abnormality is seen. VASCULATURE: Aortoiliac inflow is widely patent. No aortic or iliac arterial abnormality. Mesenteric and renal arterial vasculature unremarkable. Venous structures unremarkable. IMPRESSION: No acute process.
== END 2018-11-05 19:15 | disposition home or self-care (01) ==
LOC: EC 06:56 → 1SOBS 09:34
PROVIDERS: ADMIT Internal Medicine; ATTEND Internal Medicine
DX: I20.0 Unstable angina (principal); I71.2 Thoracic aortic aneurysm, without rupture; I10 Essential (primary) hypertension; E11.65 Type 2 diabetes mellitus with hyperglycemia; E11.42 Type 2 diabetes mellitus with diabetic polyneuropathy; G47.33 Obstructive sleep apnea (adult) (pediatric); E78.5 Hyperlipidemia, unspecified; K76.0 Fatty (change of) liver, not elsewhere classified; E55.9 Vitamin D deficiency, unspecified; Z91.14 Patient's other noncompliance with medication regimen; E66.01 Morbid (severe) obesity due to excess calories; Z68.41 Body mass index [BMI] 40.0-44.9, adult; Z79.82 Long term (current) use of aspirin; Z79.84 Long term (current) use of oral hypoglycemic drugs; Z79.899 Other long term (current) drug therapy; Z99.89 Dependence on other enabling machines and devices; Z88.0 Allergy status to penicillin; Z87.891 Personal history of nicotine dependence; Z82.49 Family history of ischemic heart disease and other diseases of the circulatory system; Z83.3 Family history of diabetes mellitus; Z82.0 Family history of epilepsy and other diseases of the nervous system; Z84.1 Family history of disorders of kidney and ureter
CPT/HCPCS: 99285; 36415; 93005; 93306; 93458; 93567; 80053; 80048; 82550; 82553; 83735; 84484; 85025 ×2; 85610; 85730 ×2; 83036; 71046; 71275; 74174; G0378 ×2; C1760; C1894; C1769; J2250; J1644 ×2; J2001; J3010; Q9967 ×2

== ENCOUNTER 2019-05-13 07:25 | Day surgery (SDC) | payer OTHER ==
[2019-05-12 08:57] VITALS: BMI 41.3
[~2019-05-13 07:25] MED LIST: LACTATED RINGERS 1,000 ML IV SCH; LIDOCAINE 1% 20 ML VIAL (10MG/ML) FOR IV START INTRADERMA PRN
[2019-05-13 07:39] VITALS: RESP 16; TEMP 97.6
[2019-05-13 08:01] LABS: Glucose,Whole Blood 176 mg/dL (75-99)
[2019-05-13] MEDS ORDERED: fentaNYL (PF) 50 MCG/ML 2 ML AMP ONE (08:20)
[2019-05-13] MEDS ORDERED: LIDOCAINE 1% INJ 10MG/ML (20 ML MDV) ONE (08:20)
[2019-05-13] MEDS ORDERED: MIDAZOLAM 2 MG/2 ML VIAL ONE (08:20)
[2019-05-13] MEDS ORDERED: PROPOFOL 10 MG/ML 20 ML VIAL IV ONE (08:20)
[2019-05-13 09:08] VITALS: BP 117/78; PULSE 80
--- NOTE | 2019-05-13 09:14 | P.PCN ---
Date of Procedure: 05/13/19 Description of Procedure: BRIEF HISTORY: 49-year-old female who presents for outpatient colonoscopy for evaluation of abdominal pain. The patient reports last colonoscopy was in 2012 but is unsure of the results. He denies any change in bowel habits or blood per rectum but does report abdominal pain. He does believe family history significant for colon cancer in his grandparents, diagnosed in her 70s. PROCEDURE PERFORMED: Colonoscopy with polypectomy. PREOPERATIVE DIAGNOSIS: Abdominal pain. ESTIMATED BLOOD LOSS: Minimal. IV sedation per Anesthesia. PROCEDURE: After informed consent was obtained, the patient, was brought into the endoscopy unit. IV sedation was administered by Anesthesia under continuous monitoring. Digital rectal examination was normal. Initially the Olympus CF-190 flexible video colonoscope was then inserted in the rectum, gradually advanced into the cecum without any difficulty. Careful examination was performed as the scope was gradually being withdrawn. Ileocecal valve and the appendiceal orifice were visualized and appeared normal. Prep was excellent. Mucosa of the cecum, ascending colon, transverse colon, descending colon, sigmoid colon, and rectum appeared eun. Diminutive 3 mm sessile ascending colon polyp removed with cold forcep polypectomy. Retroflexion was performed in the rectum and no lesions were seen, and mild internal hemorrhoids noted. Left sided diverticulosis marked by multiple small and large diverticula were also noted. The patient tolerated the procedure well. IMPRESSION: Diminutive ascending colon polyp removed with cold forceps. Moderate left-sided diverticulosis. Mild internal hemorrhoids. RECOMMENDATIONS: Findings of this examination were discussed with the patient and his mother. Await pathology from polypectomy. Anticipate repeat colonoscopy in 5 years pending pathology from polypectomy. Okay to resume medications and diet.
== END 2019-05-13 09:28 | disposition home or self-care (01) ==
LOC: ORWHC2ENDO 07:25
PROVIDERS: ATTEND Internal Medicine
DX: D12.2 Benign neoplasm of ascending colon (principal); K57.30 Diverticulosis of large intestine without perforation or abscess without bleeding; K64.8 Other hemorrhoids; Z80.0 Family history of malignant neoplasm of digestive organs; I10 Essential (primary) hypertension; E78.5 Hyperlipidemia, unspecified; E11.42 Type 2 diabetes mellitus with diabetic polyneuropathy; G47.33 Obstructive sleep apnea (adult) (pediatric); Z87.891 Personal history of nicotine dependence; Z79.82 Long term (current) use of aspirin; Z79.4 Long term (current) use of insulin; Z79.899 Other long term (current) drug therapy; Z88.0 Allergy status to penicillin
CPT/HCPCS: 45380; 88305; J2250; J2001; J3010; J2704

== ENCOUNTER → 2019-05-23 | Outpatient (CLI) | payer OTHER ==
[2019-05-23 08:40] LABS: African American GFR (CKD) >90 (>60 ml/min/1.73 sqM); Blood Urea Nitrogen 15 mg/dL (9-20)
--- NOTE | 2019-05-23 14:20 | CT ---
CT CHEST FOR PULMONARY EMBOLISM. EXAMINATION TYPE: CT angio chest DATE OF EXAM: 05/23/2019 INDICATION: Thoracic aortic aneurysm, without rupture CT DLP: 497 mGycm, Automated exposure control for dose reduction was used. CONTRAST: Patient injected with 100 mL of Isovue 370. COMPARISON: 11/05/2018 TECHNIQUE: CT of the chest is performed on a spiral scan at 2 mm thick sections. Study is performed with intravenous contrast timed for evaluation for aortic aneurysm. 3 reconstructed images are review ed on the computer. FINDINGS: No mediastinal or hilar adenopathy enlarged by CT criteria is evident. The ascending aorta diameter at the level of the main pulmonary artery is 4.6 cm. Isthmus measures smaller than 5.2 cm previous. The main pulmonary artery diameter at the bifurcation is 3.3 cm. The aorta at the level of the aortic root is 3.4 cm. The aorta in the mid thoracic aortic arch is 2.7 cm. The descending thoracic aorta at the level of the diaphragm is 2.6 cm. Lung windows are clear. Limited CT section through the upper abdomen are unremarkable. IMPRESSIONS: 1. Mid ascending thoracic aortic aneurysm with an AP diameter of 4.6 cm. No interval growth is noted.
== END | disposition home or self-care (01) ==
LOC: RADCTMAIN 07:39
PROVIDERS: ATTEND Internal Medicine Cardiovascular Disease
DX: I71.2 Thoracic aortic aneurysm, without rupture (principal)
CPT/HCPCS: 82565; 84520; 71275; 36415; Q9967

== ENCOUNTER → 2019-11-18 | Outpatient (CLI) | payer OTHER ==
--- NOTE | 2019-11-19 08:00 | XR ---
Right hand HISTORY: Pain 3 views of the right hand Bone mineralization, joint spaces and alignment are maintained. No fracture or dislocation. Some arth ropathy change present at the carpometacarpal joint of the first digit, some focal sclerosis is prese nt small ossific density lateral to the joint. IMPRESSION: Mild osteoarthritis as described
== END | disposition home or self-care (01) ==
LOC: RADXRYALE 16:36
PROVIDERS: ATTEND Physician Assistant Medical
DX: M19.041 Primary osteoarthritis, right hand (principal)

== ENCOUNTER → 2019-12-05 | Outpatient (CLI) | payer OTHER ==
[2019-12-05 16:46] LABS: African American GFR (CKD) >90 (>60 ml/min/1.73 sqM); Blood Urea Nitrogen 12 mg/dL (9-20); Non-African American GFR(CKD) >90 (>60 ml/min/1.73 sqM)
--- NOTE | 2019-12-06 09:00 | CT ---
EXAMINATION TYPE: CT angio chest DATE OF EXAM: 12/05/2019 COMPARISON: 05/23/2019 HISTORY: Follow up for thoracic aortic aneurysm. CT DLP: 1757.9 mGycm. Automated Exposure Control for Dose Reduction was Utilized. CONTRAST: CTA scan of the thorax is performed without and with IV Contrast, patient injected with 100ml mL of I sovue 370, pulmonary embolism protocol. MIP Images are created on CT scanner and reviewed. Three-D i mages of the thoracic vasculature were also obtained at a separate workstation and reviewed. FINDINGS: LUNGS: The lungs are grossly clear, there is no concerning parenchymal mass or nodule identified. T here is no pleural effusion or pneumothorax seen. The tracheobronchial tree is patent. MEDIASTINUM: Precontrast images demonstrate no evidence of intramural hematoma. Aortic root is within normal limits measuring 3.7 cm. Ascending thoracic aorta measured at the level of the main pulmonary artery measures 4.6 cm, unchanged from the prior. Aortic arch measures 2.5 cm and descending thoraci c aorta measures 2.7 cm. There is a conventional three-vessel branch pattern of the aortic arch. Ther e are no greater than 1 cm hilar or mediastinal lymph nodes. No cardiomegaly. Very trace anterior p ericardial effusion. OTHER: Hepatic steatosis is seen limiting evaluation for hepatic masses. Mild multilevel degenerative change of the spine. IMPRESSION: 1. Stable ascending thoracic aortic aneurysm measuring 4.6 cm. 2. Hepatic steatosis.
== END | disposition home or self-care (01) ==
LOC: RADCTMAIN 16:10
PROVIDERS: ATTEND Internal Medicine Cardiovascular Disease
DX: I71.2 Thoracic aortic aneurysm, without rupture (principal); Z88.0 Allergy status to penicillin
CPT/HCPCS: 82565; 84520; 71275; 36415; Q9967

== ENCOUNTER → 2022-10-18 | Outpatient (CLI) | payer BC ==
--- NOTE | 2022-10-18 15:38 | XR ---
EXAMINATION TYPE: XR knee complete RT DATE OF EXAM: 10/18/2022 CLINICAL HISTORY: Medial knee pain, no recent injury TECHNIQUE: Three views of the right knee are obtained. COMPARISON: None. FINDINGS: There is no acute fracture or dislocation in the right knee. The tri-compartment joint spac es appear within normal limits. There is an enthesophyte at the adductor tubercle. The overlying sof t tissue appears unremarkable. There is no joint effusion. IMPRESSION: Enthesophyte at the adductor tubercle. Otherwise unremarkable right knee.
== END | disposition home or self-care (01) ==
LOC: RADXRYALE 09:38
PROVIDERS: ATTEND Physician Assistant Medical
DX: M76.891 Other specified enthesopathies of right lower limb, excluding foot (principal)

== ENCOUNTER → 2023-11-28 | Outpatient (CLI) | payer BC ==
--- NOTE | 2023-11-28 11:45 | XR ---
EXAMINATION TYPE: XR wrist complete LT DATE OF EXAM: 11/28/2023 COMPARISON: NONE HISTORY: 53-year-old male [id number], left wrist pain TECHNIQUE: 3 views FINDINGS: There is a tiny 2 mm density adjacent to the ulnar styloid process interposed at the ulnoca rpal joint. Mild degenerative change with joint space narrowing and mild marginal spurring at the fir st CMC joint. The radiocarpal and distal radioulnar joint as well as the midcarpal compartment otherw ise appear intact. IMPRESSION: Tiny 2 mm corticated density adjacent to the ulnar styloid process could reflect sequela of old injury versus an accessory ossicle. Mild degenerative change base of the thumb. No acute osseo us abnormality seen.
== END | disposition home or self-care (01) ==
LOC: RADXRYALE 09:03
PROVIDERS: ATTEND Physician Assistant Medical
DX: M25.832 Other specified joint disorders, left wrist (principal); M18.12 Unilateral primary osteoarthritis of first carpometacarpal joint, left hand

== ENCOUNTER 2025-03-22 18:30 | Emergency (ER) | payer BC ==
[2025-03-22 18:50] LABS: Glucose,Whole Blood 148 mg/dL (70-110)
[2025-03-22 19:14] LABS: ALT 35 U/L (4-49); AST 32 U/L (17-59); African American GFR (CKD) >90 (>60 ml/min/1.73 sqM); Albumin 4.8 g/dL (3.5-5.0); Alkaline Phosphatase 80 U/L (38-126); Anion Gap 13 mmol/L; Blood Urea Nitrogen 16 mg/dL (9-20); Calcium 10.1 mg/dL (8.4-10.2); Carbon Dioxide 23 mmol/L (22-30); Chloride 100 mmol/L (98-107); Glucose 154 mg/dL (74-99); Magnesium 1.7 mg/dL (1.6-2.3); Non-African American GFR(CKD) >90 (>60 ml/min/1.73 sqM); Potassium 4.6 mmol/L (3.5-5.1); Sodium 136 mmol/L (137-145); Total Bilirubin 1.8 mg/dL (0.2-1.3); Total Protein 7.7 g/dL (6.3-8.2)
[2025-03-22 19:16] LABS: Basophils # (A) 0.04 10*3/uL (0.00-0.10); Basophils % (A) 0.3 %; Eosinophils # (A) 0.07 10*3/uL (0.04-0.35); Eosinophils % (A) 0.5 %; HCT 48.5 % (39.6-50.0); Lymphocytes # (A) 1.23 10*3/uL (0.90-5.00); Lymphocytes % (A) 9.3 %; MCH 29.4 pg (27.0-32.0); MCHC 35.1 g/dL (32.0-37.0); MCV 83.8 fL (80.0-97.0); Mean Platelet Volume 11.8 fL (9.5-12.2); Monocytes # (A) 0.99 10*3/uL (0.20-1.00); Monocytes % (A) 7.5 %; Neutrophils # (A) 10.86 10*3/uL (1.80-7.70); Platelet Count 181 10*3/uL (140-440); RBC 5.79 10*6/uL (4.40-5.60); RDW 13.1 % (11.5-14.5); WBC 13.24 10*3/uL (4.50-10.00)
--- NOTE | 2025-03-22 19:23 | XR ---
EXAMINATION TYPE: XR chest 2V DATE OF EXAM: 03/22/2025 7:13 PM COMPARISON: 11/04/2018 CLINICAL INDICATION: Male, 55 years old with history of Chest Pain: Shortness of breath TECHNIQUE: XR chest 2V views of the chest are obtained. FINDINGS: Scattered senescent parenchymal changes noted. Hyperinflation compatible with COPD. No evidence for infiltrate. No evidence for atelectasis. Heart size is stable. Mediastinal structures are stable and grossly unremarkable. No evidence for hilar prominence. Degenerative changes dorsal spine. IMPRESSION: 1. No evidence for acute pulmonary disease. [facility], , 03/22/2025 7:21 PM
[2025-03-22 19:32] LABS: Prothrombin Time 10.9 sec (10.0-12.5)
--- NOTE | 2025-03-22 19:43 | ED ---
Chest Pain HPI <Garrett Pérez - Last Filed: 03/22/25 21:17> - General Source: patient Mode of arrival: ambulatory Limitations: no limitations <Kelly Oliver - Last Filed: 03/22/25 21:26> - General Chief Complaint: Chest Pain Stated Complaint: Vomiting,Shortness of Breath/Chest Pain Time Seen by Provider: 03/22/25 18:42 - History of Present Illness Initial Comments: 55-year-old male presents with complaints of left-sided chest pain. States he was driving home from a club when he started having heartburn and some chest pressure as well as nausea and dry heaving. States that he never has heartburn, so this already started to worry him. Reports when he got home he continued to dry heave several more times and eventually started vomiting. Reports he had a feeling of "electricity "going through all of his upper chest, and also had some episodes of diarrhea at home before coming to the ER. Describes the chest pressure as about a 5-6 out of 10, does not radiate, reports there is some sharp pain as well in the left chest. States he has not had pain like this before, and that he was at rest when the chest pressure initially started. (Kelly Oliver) - Related Data Home Medications Medication Instructions Recorded Confirmed Aspirin [Adult Low Dose Aspirin EC] 81 mg PO DIRECTED 11/30/16 05/13/19 Garlic 1 tab PO DAILY 11/30/16 05/13/19 Atorvastatin [Lipitor] 80 mg PO DAILY 05/12/19 05/13/19 Fenofibrate,Micronized 200 mg PO HS 05/12/19 05/13/19 [Fenofibrate] Insulin Aspart [NovoLOG Flexpen] 0 units SQ ACHS PRN 05/12/19 05/13/19 Insulin Glargine,Hum.rec.anlog 30 unit SQ HS 05/12/19 05/13/19 [Lantus Solostar] Multivit-Min/Folic/Vit K/Lycop 1 each PO DAILY 05/12/19 05/13/19 [Men's Multivitamin Tablet] Niacin 500 mg PO DAILY 05/12/19 05/13/19 [place]-3 Fatty Acids/Fish Oil [Fish 5 tab PO DAILY 05/12/19 05/13/19 Oil 1,000 mg Softgel] lisinopriL [Zestril] 5 mg PO DAILY 05/12/19 05/13/19 metFORMIN HCL [Glucophage] 1,000 mg PO BID 05/12/19 05/13/19 Allergies Allergy/AdvReac Type Severity Reaction Status Date / Time Penicillins Allergy Swelling Verified 03/22/25 18:35 Review of Systems ROS Other: All systems not noted in ROS Statement are negative. <Garrett Pérez - Last Filed: 03/22/25 21:17> ROS Other: All systems not noted in ROS Statement are negative. <Kelly Oliver - Last Filed: 03/22/25 21:26> ROS Statement: Those systems with pertinent positive or pertinent negative responses have been documented in the HPI. Past Medical History Past Medical History: Diabetes Mellitus, Hyperlipidemia, Hypertension, Liver Disease, Sleep Apnea/CPAP/BIPAP Additional Past Medical History / Comment(s): NEUROPATHY FEET, [place] WITH C-PAP MACHINE, ELEVATED LIVER ENZYMES, FATTY LIVER., VITAMIN D DEFICIENCY ., ENLARGED AORTA. , STATES HE HAS BEEN HAVING ABDOMINAL PAIN. History of Any Multi-Drug Resistant Organisms: None Reported Past Surgical History: No Surgical Hx Reported, Heart Catheterization Additional Past Surgical History / Comment(s): HEART CATH (MPH OCT 2018). Past Anesthesia/Blood Transfusion Reactions: No Reported Reaction Additional Past Anesthesia/Blood Transfusion Reaction / Comment(s): NO ANESTHESIA HX. Past Psychological History: No Psychological Hx Reported Smoking Status: Former smoker Past Alcohol Use History: Occasional Past Drug Use History: None Reported - Past Family History Mother Family Medical History: Diabetes Mellitus, Renal Disease Additional Family Medical History / Comment(s): Irregular heart beat, stage II renal failure, diabetic neuropathy. Father Family Medical History: Coronary Artery Disease (CAD), Myocardial Infarction ([place]) Additional Family Medical History / Comment(s): Father had a [place] in his early 40s. He while on the heart transplant list at the age of 52 yrs <Kelly Oliver - Last Filed: 03/22/25 21:26> General Exam Limitations: no limitations <Kelly Oliver - Last Filed: 03/22/25 21:26> - General Exam Comments Initial Comments: GENERAL: In mild apparent distress at the time of examination. Pleasant and cooperative. HEENT: Head is atraumatic, normocephalic. Pupils are equal, round, and reactive to light. Sclerae anicteric. Conjunctivae are clear. Mucus membranes of the mouth are moist. Neck is supple. RESPIRATORY: Clear to auscultation. No wheezes, rales, or rhonchi. No use of accessory muscles. Patient maintaining oxygen saturation greater than 92%. No chest wall tenderness is noted on palpation or with deep breathing. CARDIOVASCULAR: Regular rate and rhythm. S1 and S2 noted. No systolic or [place] murmur auscultated. No JVD noted. No S3 or S4 noted. GASTROINTESTINAL: No distention noted. Abdomen soft and round. Normal active bowel sounds auscultated x 4 quadrants. No pain or tenderness noted upon palpation. INTEGUMENTARY: No cyanosis. No jaundice. No rashes noted. No cellulitis noted. EXTREMITIES: 2+ peripheral pulses. No evidence of peripheral edema. No calf tenderness noted. PSYCHIATRIC: Awake, alert, and oriented X 3. Appropriate affect. Intact judgement and insight. (Kelly Oliver) Course Vital Signs 03/22/25 03/22/25 03/22/25 18:33 18:35 18:52 Temperature 98.6 F Pulse Rate 121 H 106 H Pulse Rate [ 108 H Well Driller ] Respiratory 20 20 Rate Blood Pressure 133/87 141/82 O2 Sat by Pulse 97 99 Oximetry 03/22/25 18:53 Temperature Pulse Rate Pulse Rate [ Well Driller ] Respiratory 20 Rate Blood Pressure O2 Sat by Pulse Oximetry Chest Pain [facility] <Garrett Pérez - Last Filed: 03/22/25 21:17> <Kelly Oliver - Last Filed: 03/22/25 21:26> - [facility] I personally saw the patient and performed the critical portion of the service. I discussed the patient care with the resident, Dr. Oliver. I directed management, care planning and final disposition of the patient. This includes, but not limited to, review of all lab work, radiological studies, EKG's, consultations, vital signs, and nursing notes. EKG interpreted by me (3pts min.) @1842- Sinus tachycardia, no ectopy, ventricular rate 111 bpm, normal MI and QRS intervals, normal QT interval, normal axis, no ST or T wave abnormality, inferior Q waves X-Rays interpreted by me (1 pt min.) @Chest x-ray was reviewed myself and shows no evidence for acute pulmonary disease. I agree with the radiologist's interpretation CT interpreted by me ( 1pt min.) @CT angiography chest with IV contrast was reviewed myself and shows no evidence for pulmonary embolism. I agree with the radiologist's interpretation. U/S interpreted by me (1 pt min.) @None (Markusshirleycarlton,Garrett) Was pt. sent in by a medical professional or institution ([facility], PENSION AGENT, urgent care, hospital, or [place] [facility] [place] facility...) When possible be specific @ -No Did you speak to anyone other than the patient for history (EMS, parent, family, police, friend...)? What history was obtained from this source @ -Yes, family Did you review nursing and triage notes (agree or disagree)? Why? @ -I reviewed and agree with nursing and triage notes Were old charts reviewed (outside hosp., previous admission, EMS record, old EKG, old radiological studies, urgent care reports/EKG's, [place] [facility] facility records)? Report findings @ -No old charts were reviewed Differential Diagnosis? @ -Differential Chest Pain: Stable Angina, Unstable Angina, STEMI, NSTEMI Aortic Dissection, Pneumothorax, Musculoskeletal, Esophageal Spasm GERD, Cholecystitis, Pancreatitis, Zoster, this is not meant to be an all-inclusive list. EKG interpreted by me (3pts min.). @ -EKG shows tachycardia, no evidence of ST elevation or T wave inversion interp reted by me X-rays interpreted by me (1pt min.). @ -No acute cardiopulmonary process, interpreted by me CT interpreted by me (1pt min.). @ -None done U/S interpreted by me (1pt. min.). @ -None done What testing was considered but not performed or refused? (CT, X-rays, U/S, labs)? Why? @ -None What meds were considered but not given or refused? Why? @ -None Did you discuss the management of the patient with other professionals (professionals i.e. [facility], PENSION AGENT, lab, RT, psych nurse, social work case manager, slab conditioner supervisor, teacher, search and rescue officer, clinical case manager)? Give summary @ -No Was smoking cessation discussed for >3mins.? @ -No Was critical care preformed (if so, how long)? @ -No Were there social determinants of health that impacted care today? How? (Homelessness, low income, unemployed, alcoholism, drug addiction, transportation, low edu. Level, literacy, decrease access to med. care, [facility], rehab)? @ -No Was there de-escalation of care discussed even if they declined (Discuss DNR or withdrawal of care, Hospice)? DNR status @ -No What co-morbidities impacted this encounter? (DM, HTN, Smoking, COPD, CAD, Cancer, CVA, ARF, Chemo, Hep., AIDS, mental health diagnosis, sleep apnea, morbid obesity)? @ -None Was patient admitted / discharged? Hospital course, mention meds given and route, prescriptions, significant lab abnormalities, going to OR and other pertinent info. @ - discharged, 55-year-old male who presented with complaints of chest pressure. Patient was driving on his way home from a club and started feeling heartburn-like symptoms which she thought was odd for himself as he never had s ymptoms like this. States that he had to ice puller several times and dry heave due to nausea that started as well. Reports once he got home he continued to dry heave and vomited a few times. States he had a sensation in his chest which she describes as pressure but also as an electrical-like feeling going throughout his chest. States he has generalized chest pressure mainly on the left, as well as some sharp chest pain on 1 particular spot on the left side of the chest. Denies ever having symptoms like this before. States he also has had an episode of diarrhea as well. States a club with some of his friends last night where they ate some pulled pork pork chicken coleslaw and potato salad, states he has not had any other food since that time approximately 5 PM yesterday. This time he arrived to the ER performed a chest x-ray which showed no acute cardiopulmonary process, EKG showed sinus tachycardia with no evidence of ST elevation or T wave inversion. At that time CBC comp were within normal limits, troponin was flat as well and at this time it was approximately 5 hours from the initial onset of chest pressure. D-dimer was also elevated at 0.82 and a CTA chest was ordered. CTA chest showed no evidence of pulmonary embolism. Patient had a heart score of 3. Second troponin was drawn which was also negative. Patient was also feeling better after receiving Maalox and viscous lidocaine. At this time patient was discharged home, patient advised to follow- up with her PCP in 1 to 2 days. Undiagnosed new problem with uncertain prognosis? @ -No Drug Therapy requiring intensive monitoring for toxicity (Heparin, Nitro, Insulin, Cardizem)? @ -No Were any procedures done? @ -No Diagnosis/symptom? @ -Chest pain Acute, or Chronic, or Acute on Chronic? @ -Acute Uncomplicated (without systemic symptoms) or Complicated (systemic symptoms)? @ -Default Side effects of treatment? @ -No Exacerbation, Progression, or Severe Exacerbation? @ -No Poses a threat to life or bodily function? How? (Chest pain, [place], [place], pneumonia, PE, COPD, DKA, ARF, appy, cholecystitis, CVA, Diverticulitis, Homicidal, Suicidal, threat to staff... and all critical care pts) @ -No (Kelly Oliver) Disposition <Garrett éPrez - Last Filed: 03/22/25 21:17> Is patient prescribed a controlled substance at d/c from ED?: No <Kelly Oliver - Last Filed: 03/22/25 21:26> Clinical Impression: Chest pain Disposition: HOME SELF-CARE Condition: Fair Referrals: Ming Gaitan DO [Primary Care Provider] - 1-2 days
[2025-03-22 19:47] LABS: Partial Thromboplastin Time 21.3 sec (22.0-30.0)
[2025-03-22] MEDS: LIDOCAINE VISCOUS 2% 15 ML CUP PO ONE (20:40)
[2025-03-22] MEDS: MAG HYDROX/AL HYDROX/SIMETH 30 ML CUP PO SCH (20:41)
[2025-03-22] MEDS: ACETAMINOPHEN TAB 325 MG TAB PO PRN (20:41)
--- NOTE | 2025-03-22 20:48 | CT ---
EXAMINATION TYPE: CT chest angio for PE DATE OF EXAM: 03/22/2025 COMPARISON: CLINICAL INDICATION: Male, 55 years old with history of Chest pressure; PHH, chest pressure, SOB or P AIN TECHNIQUE: Ct angiogram of the chest performed with with IV Contrast, patient injected with 100ML mL of Isovue 3 70. MIP images are created and reviewed. CT DLP: 870.[address] CTDI: mGy Automated exposure control for dose reduction was used. FINDINGS: LUNGS: The lungs are grossly clear, there is no concerning parenchymal mass or nodule identified. T here is no pleural effusion or pneumothorax seen. The tracheobronchial tree is patent. MEDIASTINUM: There is satisfactory enhancement of the pulmonary artery and its branches, there is no CT evidence for pulmonary embolism. There are no greater than 1 cm hilar or mediastinal lymph nodes. No pericardial effusion is seen. HEART: Size within normal limits. No significant coronary artery calcifications. OTHER: No additional significant abnormality is seen. IMPRESSION: Follow-up recommendations for incidental pulmonary nodules are per [employer] or [employer]. [facility], , 03/22/2025 8:46 PM
[2025-03-22 22:12] VITALS: BP 97/55; PULSE 104; RESP 18; TEMP 98.2
== END 2025-03-22 22:13 | disposition home or self-care (01) ==
LOC: EC 18:30
DX: R07.89 Other chest pain (principal); Z88.0 Allergy status to penicillin; Z87.891 Personal history of nicotine dependence
CPT/HCPCS: 36415; 93005; 85379; 80053; 83735; 84484; 85025; 85610; 85730; 71046; 71275; 99285; Q9967